=== PATIENT | male | born 1950 | race Caucasian/White ===

== ENCOUNTER 2019-08-29 15:06 | Inpatient (IN) | payer OTHER ==
[2019-08-29] VITALS (11 sets, daily range): BP systolic 117–151; BP diastolic 76–94
[~2019-08-29] VITALS: Ht 172.7 cm; Wt 102.9 kg
[2019-08-29 15:19] LABS: ABSOLUTE NEUTROPHILS 4.2 thou/uL (1.4-8.2); BASOPHILS 1.1 % (0.0-2.0); EOSINOPHILS 3.8 % (0.0-3.0); HEMATOCRIT 40.9 % (42.0-52.0); HEMOGLOBIN 14.3 gm/dL (14.0-18.0); LYMPHOCYTES 45.8 % (24.0-44.0); MCH 31.1 pg (26.0-34.0); MCHC 34.9 g/dL (28.0-37.0); MCV 89.2 fL (80.0-100.0); MONOCYTES 10.5 % (1.0-8.0); PLATELET COUNT 279 thou/uL (150-400); POLYS 38.8 % (36.0-66.0); RBC 4.59 mil/uL (4.50-6.00); RDW 13.2 % (10.5-14.5); WBC 10.8 thou/uL (4.0-11.0)
[2019-08-29 15:30] LABS: ANION GAP 8 mmol/L (7-16); BUN 17 mg/dL (7-18); CALCIUM 9.2 mg/dL (8.5-10.1); CHLORIDE 99 mmol/L (98-107); CO2 27 mmol/L (21-32); CREATININE 1.1 mg/dL (0.7-1.3); GLUCOSE 303 mg/dL (74-106); POTASSIUM 3.5 mmol/L (3.5-5.1); SODIUM 134 mmol/L (136-145)
[2019-08-29 15:40] LABS: ALBUMIN 3.8 g/dL (3.4-5.0); SGOT 23 U/L (15-37); SGPT 42 U/L (30-65); TOTAL BILIRUBIN 0.6 mg/dL (<0.1-1.0); TOTAL PROTEIN 7.4 g/dL (6.4-8.2); TROPONIN-I <0.06 ng/mL (<0.06)
--- NOTE | 2019-08-29 20:03 | NUR ---
PT. ARRIVED AT FLOOR AROUND 1645; PT. ON BED; AOX4; NO C/O PAIN; C/O NAUSEA; PRN PAIN MEDICATION GIVNE; R. GROIN SIDE C/D/I; MONITORING; NO HEMATOMA THROUGH THE AFTERNOON; VS WNL; SR ON THE MONITOR; EDUCATED ABOUT BED REST; ST. UNDERSTANDING; ADMISSION PERFORMED; POC UPDATE; ASSESSMENT CHARGED; FOLLOWING POC; PASSED ON REPORT;
--- NOTE | 2019-08-30 04:01 | NUR ---
PT S/P CARDIAC CATH YESTERDAY. DENIES CHEST PAIN, NAUSEA OR VOMITING. RIGHT GROIN SITE C/D/I. NO HEMATOMA. ORDERS FOR INTEGRILIN CLARIFIED WITH DR PHELPS WHO ALSO STATED THAT, HE SHOULD NOT CALLED FOR CRITICAL TROPONIN THIS MORNING SINCE IT IS EXPECTED TO BE HIGH. PT PLEASANTLY RESTED DURING THE NIGHT. NO CONCERNS . WILL CONTINUE WITH POC.
[2019-08-30 04:25] VITALS: BP 154/92
[2019-08-30 05:25] LABS: HEMATOCRIT 38.3 % (42.0-52.0); HEMOGLOBIN 13.4 gm/dL (14.0-18.0); MCH 31.2 pg (26.0-34.0); MCV 88.9 fL (80.0-100.0); RBC 4.3 mil/uL (4.50-6.00); RDW 13.1 % (10.5-14.5); WBC 9.6 thou/uL (4.0-11.0)
[2019-08-30 06:08] LABS: CHOLESTEROL 134 mg/dL (<200); HDL CHOLESTEROL 24 mg/dL (>40); LDL CHOLESTEROL 42 mg/dL (<100); TC:HDL 5.6 Ratio (Not establshd); TRIGLYCERIDE 344 mg/dL (<150); VLDL 69 mg/dL (<40)
[2019-08-30 06:10] LABS: ALBUMIN 3.4 g/dL (3.4-5.0); CALCIUM 8.2 mg/dL (8.5-10.1); CREATININE 0.9 mg/dL (0.7-1.3); POTASSIUM 3.8 mmol/L (3.5-5.1); TOTAL BILIRUBIN 0.5 mg/dL (<0.1-1.0); TOTAL PROTEIN 6.5 g/dL (6.4-8.2)
[2019-08-30 06:12] LABS: SERUM ASSESSMENT Clear
[2019-08-30 06:13] LABS: TROPONIN-I 52.45 ng/mL (<0.06)
[2019-08-30 07:30] VITALS: BP 154/89
[2019-08-30 08:30] VITALS: BP 140/83
--- NOTE | 2019-08-30 08:34 | EKG ---
[facility] [place] [address] [place] [address] ELECTROCARDIOGRAM REPORT Name: SAULO BROWN Room #: 214-P ADM Dusty M.R.#: [id number] Admission: 08/29/19 Attend Phys: Yeison Lopez MD, Discharge: Date of : 52 Report #: [id number] THIS REPORT FOR: cc: MICHAEL - No family physician/PCP FAM - No family physician/PCP Chaitanya Nice MD [facility] ~ THIS REPORT FOR: //name// [facility] ED Test Date: 2019-08-29 Test Time: 15:08:53 Pat Name: SAULO BROWN Department: Room: [facility] Gender: M Lidar Technician: SWATHI : 1950 Requested By: Kerri Cosby Order Number: [id number] MD: Chaitanya Nice Measurements Intervals [place] Rate: 66 P: 43 [place]: 150 QRS: 34 QRSD: 90 T: 67 QT: 418 QTc: 438 Interpretive Statements Sinus rhythm Early R wave progression Diffuse ST elevation consider early repolarization, pericarditis, or injury No previous ECG available for comparison Electronically Signed On 08-30-2019 8:32:36 CDT by Chaitanya Nice [email or web address] <ELECTRONICALLY SIGNED> By: Chaitanya Nice MD, [facility] 08/30/19 0832 1508 1508 Chaitanya Nice MD, [facility] /EPI
--- NOTE | 2019-08-30 08:48 | EKG ---
[facility] [place] [address] [place] [address] ELECTROCARDIOGRAM REPORT Name: SAULO BROWN Room #: 214-P ADM Dusty M.R.#: [id number] Admission: 08/29/19 Attend Phys: Yeison Lopez MD, Discharge: Date of : 52 Report #: [id number] THIS REPORT FOR: cc: MICHAEL - Gay family physician/PCP MICHAEL - No family physician/PCP Chaitanya Nice MD [facility] ~ THIS REPORT FOR: //name// [facility] Test Date: 2019-08-30 Test Time: 07:26:21 Pat Name: SAULO BROWN Department: Room: 214 P Gender: M Belt Brander: SERGEY : 1950 Requested By: Yeison Lopez Order Number: [id number] MD: Chaitanya Nice Measurements Intervals [place] Rate: 70 P: 42 [place]: 146 QRS: -11 QRSD: 95 T: 39 QT: 371 QTc: 401 Interpretive Statements Sinus rhythm Minimal ST elevation, diffuse leads No previous ECG available for comparison Electronically Signed On 08-30-2019 8:46:53 CDT by Chaitanya Nice [email or web address] <ELECTRONICALLY SIGNED> By: Chaitanya Nice MD, FACC 08/30/19 0846 5 5 Chaitanya Nice MD, [facility] /EPI
[2019-08-30] MEDS ORDERED: ASPIRIN325 PO (11:26)
[2019-08-30] MEDS ORDERED: BENICAR20 MG PO (11:26)
[2019-08-30] MEDS ORDERED: LIPITOR40 MG PO (11:26)
[2019-08-30] MEDS ORDERED: EFFIENT10 MG PO (11:26)
[2019-08-30] MEDS ORDERED: METOPROLOL SUCC25 M1 PO (11:26)
[2019-08-30 11:30] VITALS: BP 130/86
--- NOTE | 2019-08-30 14:31 | 2DMMODE ---
[facility] [place] [address] 2 D/M-MODE ECHOCARDIOGRAM Name: SAULO BROWN Room #: 214-P ADM IN M.R.#: [id number] Admission: 08/29/19 Attend Phys: Yeison Lopez MD, Discharge: Date of : 52 Report #: [id number] THIS REPORT FOR: cc: FAM - No family physician/PCP FAM - No family physician/PCP Chaitanya Nice MD [facility] ~ APPROVED REPORT Study performed: 08/30/2019 10:38:45 EXAM: Comprehensive 2D, Doppler, and color-flow Echocardiogram Patient Location: Bedside Room #: 214 Status: routine BSA: 1.95 HR: 73 bpm BP: 154/89 mmHg Rhythm: NSR Other Information Study Quality: Technically Difficult Indications CAD Hypertension/HDD STEMI, HLD Echo Enhancing Agent Indication: Endocardial border delineation Agent(s) / Amount(s) Used: Optison 3 cc 2D Dimensions RVDd: 27.73 mm IVSd: 14.73 (7-11mm) LVOT Diam: 21.08 (18-24mm) LVDd: 32.55 mm PWd: 15.23 (7-11mm) Ascending Ao: 33.27 (22-36mm) LVDs: 20.96 (25-40mm) Aortic Root: 35.82 mm IVC: 17.00 mm Volumes Left Atrial Volume (Systole) Single Plane 4CH: 24.78 mL Single Plane 2CH: 41.20 mL LA ESV Index: 18.00 mL/m2 [facility] [place] [address] 2 D/M-MODE ECHOCARDIOGRAM Name: KEVINSAULO JACKMAN Room #: 214-P ADM IN M.R.#: [id number] Admission: 08/29/19 Attend Phys: Yeison Lopez, Discharge: Date of : 52 Report #: [id number] Aortic Valve AoV Peak Gage.: 1.11 m/s AO Peak Gr.: 4.96 mmHg LVOT Max P.82 mmHg LVOT Max V: 1.21 m/s HAYLEY Vmax: 3.78 cm2 Mitral Valve E/A Ratio: 0.8 MV Decel. Time: 235.24 ms MV E Max Gage.: 0.62 m/s MV A Gage.: 0.79 m/s MV PHT: 68.22 ms IVRT: 117.65 ms Pulmonary Valve PV Peak Gage.: 0.84 m/s PV Peak Gr.: 2.85 mmHg Pulmonary Vein P Vein S: 0.63 m/s P Vein A: 0.32 m/s P Vein D: 0.35 m/s P Vein A Dur.: 96.9 msec P Vein S/D Ratio: 1.80 Tricuspid Valve RAP Estimate: 10.00 mmHg Left Ventricle The left ventricle is normal size. Moderate concentric left ventricular hypertrophy. Left ventricular systolic function is mildly decreased. LVEF is 45-50%. Distal septal and apical hypokinesis Mild diastolic dysfunction is present (impaired relaxation pattern). Right Ventricle The right ventricle is normal size. Right ventricle is mildly hypokinetic. Atria The left atrium size is normal. The right atrium size is normal. Aortic Valve The aortic valve is normal in structure. No aortic regurgitation is present. There is no aortic valvular stenosis. Mitral Valve [facility] [address] [place] [address] 2 D/M-MODE ECHOCARDIOGRAM Name: SAULO BROWN Room #: 214-P ADM IN M.R.#: [id number] Admission: 08/29/19 Attend Phys: Yeison Lopez, Discharge: Date of : 52 Report #: [id number] The mitral valve is normal in structure. Mild mitral regurgitation. No evidence of mitral valve stenosis. Tricuspid Valve The tricuspid valve is normal in structure. There is no tricuspid valve regurgitation noted. Unable to assess PA pressure. Pulmonic Valve Pulmonic valve is not well visualized. Great Vessels The aortic root is normal in size. IVC is normal in size and collapses <50% with inspiration. Pericardium There is no pericardial effusion. <Conclusion> Left ventricular systolic function is mildly decreased. LVEF is 45-50%. Distal septal and apical hypokinesis Mild diastolic dysfunction The aortic valve is normal in structure. No aortic regurgitation or stenosis The mitral valve is normal in structure. Mild mitral regurgitation. Unable to assess pulmonary artery pressure. There is no pericardial effusion. <ELECTRONICALLY SIGNED> By: Chaitanya Nice MD, [facility] 08/30/19 1429 1429 1429 Chaitanya Nice MD, FACC /INF
[2019-08-30 16:00] VITALS: BP 126/85
--- NOTE | 2019-08-30 16:57 | CATHLAB ---
[facility] [place] [address] [place] [address] INVASIVE PROCEDURE REPORT Name: SAULO BROWN Room #: 214-P ADM IN M.R.#: [id number] Admission: 08/29/19 Attend Phys: Yeison Lopez MD, Discharge: Date of : 52 Report #: [id number] THIS REPORT FOR: cc: FAM - No family physician/PCP FAM - No family physician/PCP Yeison Lopez MD [facility] ~ APPROVED REPORT Study performed: 08/29/2019 15:30:33 Patient Details Patient Status: In-Patient Room #: The patient is a 69 year-old male Event Personnel Yeison Lopez Blown Film Extrusion Operator, Jane Melendez RN, Ruby Pino Monitor, López Pace RTR Scrub, Chaparrita Venegas RT(R)() Bulmaro Rodriguez Ashley RN hydroelectric station operator Performed Art Access - R femoral artery* 46630 Initial Mod Sed Same Phys/QHP Gr5y 001662 83627 Mod Sed Same Phys/QHP Ea 895862 Left Heart Cath w/or w/o Coronaries [id number] [facility] DENISE Revasc AMI Total/Sub Single LAD C9606 AMIREVSING Hemostasis w/ Mynx Indication Chest pain Procedure Narrative The patient was brought emergently to the Cardiac Catheterization Laboratory and was prepped and draped in a sterile manner. The Right Groin^ was infiltrated with 1% Lidocaine subcutaneous anesthesia. A PINNACLE 6FR Sheath #[id number] sheath was inserted into the RFA^. Coronary angiography was performed using coronary diagnostic catheters. The right coronary system was accessed and visualized with a JR 4 catheter. The left coronary system was accessed and visualized with a JL 4 catheter. The left ventricle was accessed and visualized with a Pigtail catheter. Left ventriculogram was performed in SWANN projection. Closure device was deployed with a 6 Fr Mynx. The patient tolerated the procedure well and there were no complications associated with the procedure. There was no hematoma. Intraoperative Conscious Sedation Sedation start time: 15:38 Case end Time: [facility] [address] [place] [address] INVASIVE PROCEDURE REPORT Name: SAULO BROWN Room #: 214-P [facility] IN M.R.#: [id number] Admission: 08/29/19 Attend Phys: Yeison Lopez, Discharge: Date of : 52 Report #: [id number] 16:45 Fentanyl 100 mcg Versed 3 mg Fluoro Time: 11.07 minutes Dose: DAP 74767.00 cGycm2 1644 mGy Contrast Type and Amount: Visipaque 200 ml Hemodynamics The aortic pressure is 163/94 mmHg with a mean of 121 mmHg. The left ventricular pressure is 163/8 mmHg with a mean of mmHg. The left ventricular end diastolic pressure is 22 mmHg. PCI Technique Lesion Percutaneous coronary intervention was performed on the mid left anterior descending artery segment. A LAUNCHER 6FR EBU 4 #[id number] Guide Catheter was used to engage the ostium. A Luge Wire .014 x 182CM #[id number] Interventional Guidewire was used to cross the lesion. BALLOON DILATION A Balloon catheter Sprinter OTW 2.5 x 12 #[id number] was inserted and inflated up to 8.00atm for 16seconds. Additional Inflation: 12.00atm for 21seconds. Additional Inflation: 14.00atm for 20seconds. STENT DEPLOYMENT A drug-eluting stent RESOLUTE LAURA OTW 2.75 X 15 #[id number] was inserted and inflated up to 16.00atm for 30seconds. Additional Inflation: 18.00atm for 20seconds. Conclusion # 1. 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 Moderate disease in the proximal PDA not occlusive. #5 normal left ventricular size with a moderate amount of anterior apical inferior apical hypokinesis EF 45% range Recommendations and plan: Continue aggressive risk factor modification. Dual antiplatelet therapy has been initiated. Patient [address] [address] INVASIVE PROCEDURE REPORT Name: SAULO BROWN Room #: 214-P [facility] IN M.R.#: [id number] Admission: 08/29/19 Attend Phys: Yeison Lopez, Discharge: Date of : 52 Report #: [id number] will transfer to [facility] with resolution of chest pain and EKG changes. Hemodynamically stable. <ELECTRONICALLY SIGNED> By: Yeison Lopez MD, FACC 08/30/191654 54 54 Yeison Lopez MD, FAC /INF
[2019-08-30 19:23] VITALS: BP 125/78
--- NOTE | 2019-08-30 21:07 | NUR ---
RECEIVED PT'S CARE AROUND 0735; PT. ON BED; AOX4; DURING AM ASSESSMENT NO C/O PAIN; ELEVATED BS DURING ADMISSION; BALL ENDER DIGITAL ACCOUNT COORDINATOR NOTIFIED; ORDERS ON PLACE; BS ON THE 200s; DIGITAL ACCOUNT COORDINATOR NOTIFIED DURING ROUNDING; ORDERS ON PLACED; PT. EDUCATED ABOUT NEW MEDICATIONS; ST. UNDERSTANDING; SR ON THE MONITOR; ASSESSMENT CHARGED; FOLLOWING POC; PASSED ON REPORT;
--- NOTE | 2019-08-31 03:42 | NUR ---
PT ALERT AND ORIENTED. VSS. NO CHEST PAIN, SOB, OR NAUSEA REPORTED. NO EVENTS OVERNIGHT. WILL FOLLOW POC.
[2019-08-31 05:21] LABS: HEMATOCRIT 41.5 % (42.0-52.0); HEMOGLOBIN 14.6 gm/dL (14.0-18.0); MCH 31.3 pg (26.0-34.0); MCHC 35.1 g/dL (28.0-37.0); RBC 4.67 mil/uL (4.50-6.00); RDW 13.1 % (10.5-14.5); WBC 9.9 thou/uL (4.0-11.0)
[2019-08-31 05:44] LABS: CALCIUM 8.5 mg/dL (8.5-10.1); CREATININE 0.8 mg/dL (0.7-1.3); POTASSIUM 3.7 mmol/L (3.5-5.1)
[2019-08-31 06:05] VITALS: BP 125/74
[2019-08-31 07:50] VITALS: BP 131/77
[2019-08-31 08:00] VITALS: BP 131/77
[2019-08-31] MEDS ORDERED: GLUCOPHAGE500 MG PO (09:22)
[2019-08-31 10:02] VITALS: BP 131/77
--- NOTE | 2019-08-31 10:08 | EKG ---
[facility] [place] [address] [place] [address] ELECTROCARDIOGRAM REPORT Name: SAULO BROWN Room #: 214-P ADM IN M.R.#: [id number] Admission: 08/29/19 Attend Phys: Yeison Lopez MD, Discharge: Date of : 52 Report #: [id number] THIS REPORT FOR: cc: MICHAEL - No family physician/PCP MICHAEL - No family physician/PCP Chaitanya Nice MD [facility] ~ THIS REPORT FOR: //name// [facility] Test Date: 2019-08-31 Test Time: 07:46:53 Pat Name: SAULO BROWN Department: Room: 214 P Gender: M Oxyacetylene Burner: : 1950 Requested By: Marianne Carrillo Order Number: [id number] MD: Chaitanya Nice Measurements Intervals [place] Rate: 68 P: 45 ID: 139 QRS: -9 QRSD: 92 T: 10 QT: 487 QTc: 519 Interpretive Statements Sinus rhythm Anteroseptal [facility], recent Abnormal T, consider ischemia, diffuse leads Prolonged QT interval Compared to ECG 08/30/2019 07:26:21 ST and T wave abnormality is new Septal Q waves are more prominent Electronically Signed On 08-31-2019 10:07:13 CDT by Chaitanya Nice [email or web address] <ELECTRONICALLY SIGNED> By: Chaitanya Nice MD, [facility] 08/31/19 1007 0746 Chaitanya Nice MD, [facility] /EPI
--- NOTE | 2019-08-31 16:24 | NUR ---
PT CARE ASSUMED AT 0700. ASSESSMENT CHARTED. MEDICATIONS CHARTED. PT TO BE DISCHARGED. TELE D/C'D. IV'S D/C'D.
== END 2019-08-31 10:41 | disposition home or self-care (01) | DRG 246 ==
LOC: ER 15:06 → 2N 17:38
PROVIDERS: Nurse Practitioner Adult Health; Physician Assistant; ADMIT Internal Medicine Cardiovascular Disease
PROC: 4A023N7 Measurement of Cardiac Sampling and Pressure, Left Heart, Percutaneous Approach (ICD-10-PCS; principal; 2019-08-29)
PROC: B2151ZZ Fluoroscopy of Left Heart using Low Osmolar Contrast (ICD-10-PCS; principal; 2019-08-29)
PROC: B2111ZZ Fluoroscopy of Multiple Coronary Arteries using Low Osmolar Contrast (ICD-10-PCS; principal; 2019-08-29)
PROC: 027034Z Dilation of Coronary Artery, One Artery with Drug-eluting Intraluminal Device, Percutaneous Approach (ICD-10-PCS; principal; 2019-08-29)
DX: I21.3 ST elevation (STEMI) myocardial infarction of unspecified site (principal); N17.0 Acute kidney failure with tubular necrosis; N17.9 Acute kidney failure, unspecified; E78.5 Hyperlipidemia, unspecified; I10 Essential (primary) hypertension; C61 Malignant neoplasm of prostate; R73.9 Hyperglycemia, unspecified; Z79.82 Long term (current) use of aspirin; Z82.49 Family history of ischemic heart disease and other diseases of the circulatory system; Z79.899 Other long term (current) drug therapy
CPT/HCPCS: 10081

== ENCOUNTER → 2019-09-27 | Outpatient (CLI) | payer OTHER ==
[~2019-09-27] MED LIST: ANUSOL-HC30 GM TOP; ASPIRIN325 PO; BENICAR20 MG PO; EFFIENT10 MG PO; GLUCOPHAGE500 MG PO; JARDIANCE10 MG PO; KRISTALOSE20 GM PO; LIPITOR40 MG PO; METOPROLOL SUCC25 M1 PO
== END ==
LOC: SJCVCIMAG 08:47
PROVIDERS: ATTEND Internal Medicine Cardiovascular Disease
DX: I25.10 Atherosclerotic heart disease of native coronary artery without angina pectoris (principal); I10 Essential (primary) hypertension; E78.1 Pure hyperglyceridemia; E78.00 Pure hypercholesterolemia, unspecified; R73.09 Other abnormal glucose; R09.89 Other specified symptoms and signs involving the circulatory and respiratory systems; Z82.49 Family history of ischemic heart disease and other diseases of the circulatory system

== ENCOUNTER 2019-10-12 21:23 | Emergency (ER) | payer OTHER ==
[~2019-10-12] VITALS: Ht 172.7 cm; Wt 85.3 kg
[~2019-10-12 21:23] MED LIST changes: -ANUSOL-HC30 GM TOP; -JARDIANCE10 MG PO; -KRISTALOSE20 GM PO
[2019-10-12] MEDS ORDERED: JARDIANCE10 MG PO (21:34)
[2019-10-13] MEDS ORDERED: KRISTALOSE20 GM PO (02:06)
[2019-10-13] MEDS ORDERED: ANUSOL-HC30 GM TOP (02:09)
[2019-10-13 02:49] VITALS: BP 130/74
== END 2019-10-13 02:51 | disposition home or self-care (01) ==
LOC: ER 21:23
DX: K64.4 Residual hemorrhoidal skin tags (principal); K59.00 Constipation, unspecified; Z79.82 Long term (current) use of aspirin; Z79.899 Other long term (current) drug therapy; Z85.46 Personal history of malignant neoplasm of prostate

== ENCOUNTER → 2020-04-07 | Outpatient (CLI) | payer OTHER ==
[~2020-04-07] MED LIST changes: +ANUSOL-HC30 GM TOP; +JARDIANCE10 MG PO; +KRISTALOSE20 GM PO
== END ==
LOC: SJCVCIMAG 10:59
PROVIDERS: ATTEND Internal Medicine Cardiovascular Disease
DX: I25.10 Atherosclerotic heart disease of native coronary artery without angina pectoris (principal); I10 Essential (primary) hypertension; I25.2 Old myocardial infarction; R09.89 Other specified symptoms and signs involving the circulatory and respiratory systems; Z95.5 Presence of coronary angioplasty implant and graft; Z79.899 Other long term (current) drug therapy; Z82.49 Family history of ischemic heart disease and other diseases of the circulatory system

== ENCOUNTER → 2020-10-09 | Outpatient (CLI) | payer OTHER | LOC: SJCVC 13:52 | PROVIDERS: ATTEND Internal Medicine Cardiovascular Disease | DX: I25.10 Atherosclerotic heart disease of native coronary artery without angina pectoris (principal); I10 Essential (primary) hypertension; E78.00 Pure hypercholesterolemia, unspecified; E11.9 Type 2 diabetes mellitus without complications; Z79.82 Long term (current) use of aspirin; Z79.899 Other long term (current) drug therapy; Z95.5 Presence of coronary angioplasty implant and graft ==

== ENCOUNTER → 2021-04-12 | Outpatient (CLI) | payer OTHER | LOC: SJCVC 13:29 | PROVIDERS: ATTEND Internal Medicine Cardiovascular Disease | DX: I25.10 Atherosclerotic heart disease of native coronary artery without angina pectoris (principal); I10 Essential (primary) hypertension; E11.9 Type 2 diabetes mellitus without complications; E78.5 Hyperlipidemia, unspecified; Z79.82 Long term (current) use of aspirin; Z79.899 Other long term (current) drug therapy ==